=== PATIENT | male | born 2000 | race Caucasian/White ===

== ENCOUNTER 2020-11-18 07:50 | Emergency (ER) | payer MEDICAID ==
--- NOTE | 2020-11-18 13:52 | ER ---
REASON FOR EMERGENCY ROOM VISIT: Sore throat. 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 He has not had any fever or cough and denies any GI symptoms. He denies any shortness of breath. The patient has not been vaccinated for COVID at this time. He is accompanied by his girlfriend who has been feeling well. PAST MEDICAL HISTORY: Unremarkable. MEDICATIONS: None. ALLERGIES: TO PENICILLINS. REVIEW OF SYSTEMS: Pertinent positives and negatives as listed in the HPI. PHYSICAL EXAMINATION: VITAL SIGNS: He is afebrile. Blood pressure 146/97, respiratory rate is 18, O2 sats 98% on room air. HEENT: Head is normocephalic. He has no conjunctivitis. Oropharynx, he does have some pharyngeal erythema. NECK: Supple. There is no adenopathy. CHEST: Clear to auscultation with good air exchange bilaterally. No wheezes, rhonchi, or rales are noted. ABDOMEN: Soft, nontender. No hepatosplenomegaly. SKIN: No rashes. LABORATORY DATA: His strep screen was negative. We went ahead and obtained a COVID screen and that too was negative. IMPRESSION: Pharyngitis, most likely viral. PLAN: Very supportive measures were discussed with him. Certainly, if he should have any worsening of his symptoms or any questions or concerns, he should call or return for an another evaluation. He understands and agrees with this plan. All questions were answered. NELDA /[id number]
== END 2020-11-18 09:40 | disposition home or self-care (01) ==
LOC: LB.ED 07:50
DX: J02.9 Acute pharyngitis, unspecified (principal); Z88.0 Allergy status to penicillin; Z20.822 Contact with and (suspected) exposure to COVID-19
CPT/HCPCS: 87430; 99283; U0002

== ENCOUNTER 2020-11-18 20:59 | Emergency (ER) | payer MEDICAID ==
[2020-11-18] MEDS ORDERED: Azithromycin 250 MG Tab ONE (21:00)
[2020-11-18] MEDS ORDERED: traMADol 50 MG Tab PO ONE (21:52)
--- NOTE | 2020-11-19 02:01 | ER ---
REASON FOR EMERGENCY ROOM VISIT: Sore throat. HISTORY: This 20-year-old man was in earlier this morning with a sore throat of 3 or 4 days duration. At that time, he had some erythema of his posterior pharynx, but no exudates. He did not have any adenopathy and the rest of his physical findings were unremarkable. He had a symptoms of 3 or 4 days. The strep screen was negative and his COVID-19 rapid test was negative as well. He was discharged with instructions for supportive care and advised that this was likely a viral type of infection. Throughout the day, he began to have fever and chills with a temperature as high as 101 degrees and he developed some tender lymph nodes in his cervical area. He has not had any nausea or vomiting. He denies any cough or wheezing. He has not had any skin rashes. PAST MEDICAL HISTORY: Unremarkable. MEDICATIONS: None. ALLERGIES: TO PENICILLIN. PHYSICAL EXAMINATION: GENERAL: He is alert and in no acute distress. VITAL SIGNS: His temperature is 101 degrees. HEENT: Head is normocephalic. He has no conjunctivitis. TMs are normal. His oropharynx, he still has erythema and perhaps some slight tonsillar exudates are noted. There is no evidence of peritonsillar abscess. NECK: Supple, but he does have some tender anterior cervical nodes high up in the neck and beneath the angle of the mandible bilaterally. CHEST: Clear to auscultation. CARDIAC: Regular rate without murmur. SKIN: No rashes. ABDOMEN: Soft. No hepatosplenomegaly. LABORATORY DATA: Repeat strep screen this evening was in fact negative, but his monospot is positive. IMPRESSION: Infectious mono with pharyngitis. PLAN: I informed him of this and antibiotics would not be useful. Under these circumstances, we were going to give him a Z-Kulwant, but when the monospot returned, I advised him not to take antibiotics at this time. We will give him some tramadol for discomfort. We will give him 1 tramadol tonight to take before he goes home, so he can get some rest, but that ibuprofen and Tylenol would be the best thing. He needs to rest and he is told that this may take several days before symptoms will subside. The risk of splenic enlargement and injury to his spleen with vigorous exercise or accidents was explained to him and so that he should take necessary precautions. He understands, all questions were answered. He agrees with this. MYRON/ELIAS /[id number]
== END 2020-11-18 21:55 | disposition home or self-care (01) ==
LOC: LB.ED 20:59
DX: J02.9 Acute pharyngitis, unspecified (principal); B27.90 Infectious mononucleosis, unspecified without complication; Z88.0 Allergy status to penicillin
CPT/HCPCS: 36415; 86308; 87430; 99283; A9270

== ENCOUNTER 2020-11-20 14:34 | Observation (INO) | payer MEDICAID ==
[~2020-11-20 14:34] MED LIST: Iopamidol 612 MG/ML 100 ML Bottle IV ONE
[2020-11-20] MEDS ORDERED: Ketorolac 60 MG/2 ML SDV IVPUSH ONE (15:13)
[2020-11-20] MEDS ORDERED: Sodium Chloride 0.9% 1,000 ML IV SCH (15:25)
[2020-11-20] MEDS ORDERED: Sodium Chloride 0.9% 50 ML SDV FLUSH ONE (15:28)
[2020-11-20] MEDS ORDERED: Ketorolac 30 MG/ML SDV ONE (15:29)
[2020-11-20] MEDS ORDERED: Iopamidol 612 MG/ML 100 ML Bottle IV SCH (15:30)
[2020-11-20] MEDS ORDERED: Prochlorperazine 10 MG/2 ML SDV IVPUSH ONE (16:04)
[2020-11-20] MEDS ORDERED: HYDROmorphone 2 MG/ML SDV IVPUSH ONE (16:04)
[2020-11-20] MEDS ORDERED: methylPREDNISolone Sodium Succinate 125 MG/2 ML SDV IVPUSH ONE (16:32)
[2020-11-20] MEDS ORDERED: Lactated Ringers 2,000 ML IV SCH (17:00)
[2020-11-20] MEDS ORDERED: Sodium Chloride 0.9% 1,000 ML IV ONE (17:03)
[2020-11-20] MEDS ORDERED: Ketorolac 60 MG/2 ML SDV IM SCH ×2 (17:15→21:00)
[2020-11-20] MEDS ORDERED: methylPREDNISolone Sodium Succinate 125 MG/2 ML SDV IVPUSH SCH (17:15)
--- NOTE | 2020-11-20 18:31 | EDM.PDOC ---
ED HPI GENERAL MEDICAL PROBLEM - General Chief Complaint: General Stated Complaint: POSSIBLE MONO Time Seen by Provider: 11/20/20 14:45 Source of Information: Reports: Patient, Significant Other History Limitations: Reports: No Limitations - History of Present Illness INITIAL COMMENTS - FREE TEXT/NARRATIVE: pt arrives with significant other who assists with history due to pt difficulty speaking. pt with dx of mono on Nov with symptoms of sore throat, trouble sleeping, difficulty swallowing worsening over the last 24hrs. pt has an appetite but has been unable to eat or drink due to the painful swallowing. difficulty speaking as well, and pt states sleep is difficult due to needing to keep position of leading forward to breathe easily. sonorous respirations intermittently throughout the day. denies fever, chills, nausea, vomiting. last BM of 15 november. - Related Data Allergies Allergy/AdvReac Type Severity Reaction Status Date / Time Penicillins Allergy Bronchospas Verified 11/20/20 14:43 ms Home Meds: Home Meds NK [No Known Home Meds] 11/18/20 [History] Past Medical History - Past Health History Medical/Surgical History: Denies Medical/Surgical History - Past Surgical History Musculoskeletal Surgical History: Reports: Other (See Below) Other Musculoskeletal Surgeries/Procedures:: Broken left ankle, wrist and nose Social & Family History - Family History Family Medical History: No Pertinent Family History - Caffeine Use Caffeine Use: Reports: Soda - Recreational Drug Use Recreational Drug Use: No ED ROS GENERAL - Review of Systems Review Of Systems: Comprehensive ROS is negative, except as noted in HPI. ED EXAM, GENERAL - Physical Exam Exam: See Below Exam Limited By: No Limitations General Appearance: Alert, No Apparent Distress Eye Exam: Bilateral Eye: EOMI, PERRL Nose: Normal Inspection, Normal Mucosa Throat/Mouth: Normal Lips, Normal Teeth, Normal Gums, Dysphagia, Other (hot potato voice, tonsillar grading of 3+, no noted petechia or exudates. uvula midline.) Head: Atraumatic, Normocephalic Neck: Full Range of Motion, Lymphadenopathy (R), Lymphadenopathy (L) Respiratory/Chest: No Respiratory Distress, Lungs Clear, No Accessory Muscle Use, Chest Non-Tender Cardiovascular: Normal Peripheral Pulses, Regular Rate, Rhythm, No Murmur Neurological: Alert, Oriented, CN II-XII Intact, Normal Cognition, Normal Gait Psychiatric: Normal Affect, Normal Mood Skin Exam: Warm, Dry, Intact Lymphatic: Adenopathy (cervical, submandibular, auricle) Course - Vital Signs Last Recorded V/S: Last Vital Signs Temp 101.2 F H 11/20/20 16:57 Pulse 120 H 11/20/20 16:57 Resp 20 11/20/20 16:57 BP 145/92 H 11/20/20 16:57 Pulse Ox 98 11/20/20 16:57 - Orders/Labs/Meds Orders: Active Orders 24 hr Category Date Time Status Admission Diagnosis [ADT] Routine ADT 11/20/20 16:57 Active Patient Status [ADT] Routine ADT 11/20/20 16:57 Active Transfer Patient (Change bed) [ADT] Routine ADT 11/20/20 16:57 Active Ambulate [RC] PER UNIT ROUTINE Care 11/20/20 17:00 Active Oxygen Therapy [RC] PRN Care 11/20/20 16:57 Active Up ad Shreya [RC] ASDIRECTED Care 11/20/20 16:57 Active VTE/DVT Education [RC] Per Unit Routine Care 11/20/20 16:57 Active Vital Signs [RC] 00,04,08,12,16,20 Care 11/20/20 16:57 Active Clear Liquid Diet [DIET] Diet 11/21/20 Breakfast Ordered Soft Tissue Neck w Cont [CT] Stat Exams 11/20/20 15:22 Taken Iopamidol [Isovue-300 (61%)] Med 11/20/20 15:30 Active 100 ml IV . DIRECTED Ketorolac [Toradol] Med 11/20/20 17:15 Active 15 mg IM Q6H Lactated Ringers [Ringers, Lactated] 2,000 ml Med 11/20/20 17:00 Active IV ASDIRECTED Sodium Chloride 0.9% [Normal Saline] 1,000 ml Med 11/20/20 15:25 Active IV ASDIRECTED methylPREDNISolone Sod Succ [Solu-MEDROL] Med 11/20/20 17:15 Active 125 mg IVPUSH Q8H Resuscitation Status Routine Resus Stat 11/20/20 16:57 Ordered Medication Orders Sodium Chloride (Normal Saline) 1,000 mls @ 999 mls/hr IV ASDIRECTED JENNIFER Last Admin: 11/20/20 15:30 Dose: 999 mls/hr Documented by: PERRY Lactated Ringer's (Ringers, Lactated) 2,000 mls @ 75 mls/hr IV ASDIRECTED JENNIFER Iopamidol (Iopamidol 612 Mg/Ml 100 Ml Bottle) 100 ml IV . DIRECTED [facility] Last Admin: 11/20/20 15:35 Dose: 100 ml Documented by: TAMAR Ketorolac Tromethamine (Ketorolac 60 Mg/2 Ml Sdv) 15 mg IM Q6H JENNIFER Methylprednisolone Sodium Succinate (Methylprednisolone Sodium Succinate 125 Mg/2 Ml Sdv) 125 mg IVPUSH Q8H [facility] Labs: Laboratory Tests 11/20/20 11/20/20 Range/Units 15:13 15:15 WBC 22.3 H* (4.0-11.0) K/uL RBC 4.88 (4.50-6.50) M/uL Hgb 15.0 (13.0-18.0) g/dL Hct 43.1 (40.0-54.0) % MCV 88 (76-96) fL MCH 30.7 (27.0-32.0) pg MCHC 34.8 (31.0-35.0) g/dL RDW 12.7 (11.0-16.0) % Plt Count 365 (150-400) K/uL MPV 9.6 (6.0-10.0) fL Add Manual Diff Yes Neutrophils % (Manual) 84.0 H (45.0-70.0) % Lymphocytes % (Manual) 7.0 L (20.0-40.0) % Monocytes % (Manual) 9.0 (3.0-10.0) % Platelet Estimate Adequate Sodium 139 (136-145) mmol/L Potassium 4.1 (3.5-5.1) mmol/L Chloride 100 (98-107) mmol/L Carbon Dioxide 29.2 (21.0-32.0) mmol/L Anion Gap 13.9 (5.0-15.0) mmol/L BUN 16 (8-26) mg/dL Creatinine 0.99 (0.70-1.30) mg/dL Est Cr Clr Drug Dosing 112.63 mL/min Estimated GFR (MDRD) > 60 (>60) MLS/MIN BUN/Creatinine Ratio 16.2 (6-25) Glucose 121 H (74-100) mg/dL Calcium 9.8 (8.5-10.1) mg/dL Total Bilirubin 0.9 (0.0-1.0) mg/dL AST 8 L (15-37) U/L ALT 15 (12-78) U/L Alkaline Phosphatase 80 (46-116) U/L Total Protein 9.1 H (6.4-8.2) g/dL Albumin 3.6 (3.4-5.0) g/dL Globulin 5.5 H (2.2-4.2) g/dL Albumin/Globulin Ratio 0.7 L (0.8-2.0) Meds: Medications Generic Name Dose Route Start Last Admin Trade Name Freq PRN Reason Stop Dose Admin Sodium Chloride 1,000 mls @ 999 mls/hr 11/20/20 15:25 11/20/20 15:30 Normal Saline IV 999 mls/hr ASDIRECTED JENNIFER Administration Lactated Ringer's 2,000 mls @ 75 mls/hr 11/20/20 17:00 Ringers, Lactated IV ASDIRECTED JENNIFER Iopamidol 100 ml 11/20/20 15:30 11/20/20 15:35 Iopamidol 612 Mg/Ml 100 Ml Bottle IV 100 ml . DIRECTED JENNIFER Administration Ketorolac Tromethamine 15 mg 11/20/20 17:15 Ketorolac 60 Mg/2 Ml Sdv IM Q6H JENNIFER Methylprednisolone Sodium Succinate 125 mg 11/20/20 17:15 Methylprednisolone Sodium Succinate 125 Mg/2 Ml Sdv IVPUSH Q8H JENNIFER Discontinued Medications Generic Name Dose Route Start Last Admin Trade Name Freq PRN Reason Stop Dose Admin Sodium Chloride 1,000 mls @ 999 mls/hr 11/20/20 17:03 Normal Saline IV 11/20/20 18:03 .BOLUS ONE Ketorolac Tromethamine 15 mg 11/20/20 15:13 11/20/20 15:19 Ketorolac 60 Mg/2 Ml Sdv IVPUSH 11/20/20 15:14 15 mg ONETIME ONE Administration Ketorolac Tromethamine Confirm 11/20/20 15:29 11/20/20 15:30 Ketorolac 30 Mg/Ml Sdv Administered 11/20/20 15:30 Not Given Dose 30 mg .ROUTE .STK-MED ONE Methylprednisolone Sodium Succinate 125 mg 11/20/20 16:32 11/20/20 16:39 Methylprednisolone Sodium Succinate 125 Mg/2 Ml Sdv IVPUSH 11/20/20 16:33 125 mg ONETIME ONE Administration Sodium Chloride 50 ml 11/20/20 15:28 11/20/20 15:35 Sodium Chloride 0.9% 50 Ml Sdv FLUSH 11/20/20 15:29 50 ml ONETIME ONE Administration Departure - Departure Time of Disposition: 17:45 Disposition: Admitted As Inpatient 64 Condition: Fair Clinical Impression: Mononucleosis syndrome - Discharge Information *PRESCRIPTION DRUG MONITORING PROGRAM REVIEWED*: Not Applicable *COPY OF PRESCRIPTION DRUG MONITORING REPORT IN PATIENT SUSAN: Not Applicable Sepsis Event Note (ED) - Evaluation Sepsis Screening Result: Possible Sepsis Risk - Focused Exam Vital Signs: Vital Signs Temp Temp Pulse Resp BP Pulse Ox 11/20/20 16:57 101.2 F H 120 H 20 145/92 H 98 11/20/20 16:34 100.3 F 120 H 16 146/92 H 99 11/20/20 14:48 124 H 11/20/20 14:44 99 F 116 H 20 136/91 H 99 - Problem List & Annotations (1) Mononucleosis syndrome SNOMED Code(s): 738282260 Code(s): B27.90 - INFECTIOUS MONONUCLEOSIS, UNSPECIFIED WITHOUT COMPLICATION Status: Acute Current Visit: Yes - Problem List Review Problem List Initiated/Reviewed/Updated: Yes - My Orders Last 24 Hours: My Active Orders 11/20/20 15:22 Soft Tissue Neck w Cont [CT] Stat 11/20/20 15:25 Sodium Chloride 0.9% [Normal Saline] 1,000 ml IV ASDIRECTED 11/20/20 16:57 Admission Diagnosis [ADT] Routine Patient Status [ADT] Routine Transfer Patient (Change bed) [ADT] Routine Oxygen Therapy [RC] PRN Up ad Shreya [RC] ASDIRECTED VTE/DVT Education [RC] Per Unit Routine Vital Signs [RC] 00,04,08,12,16,20 Resuscitation Status Routine 11/20/20 17:00 Ambulate [RC] PER UNIT ROUTINE Lactated Ringers [Ringers, Lactated] 2,000 ml IV ASDIRECTED 11/20/20 17:15 Ketorolac [Toradol] 15 mg IM Q6H methylPREDNISolone Sod Succ [Solu-MEDROL] 125 mg IVPUSH Q8H 11/21/20 Breakfast Clear Liquid Diet [DIET] - Assessment/Plan Last 24 Hours: My Active Orders 11/20/20 15:22 Soft Tissue Neck w Cont [CT] Stat 11/20/20 15:25 Sodium Chloride 0.9% [Normal Saline] 1,000 ml IV ASDIRECTED 11/20/20 16:57 Admission Diagnosis [ADT] Routine Patient Status [ADT] Routine Transfer Patient (Change bed) [ADT] Routine Oxygen Therapy [RC] PRN Up ad Shreya [RC] ASDIRECTED VTE/DVT Education [RC] Per Unit Routine Vital Signs [RC] 00,04,08,12,16,20 Resuscitation Status Routine 11/20/20 17:00 Ambulate [RC] PER UNIT ROUTINE Lactated Ringers [Ringers, Lactated] 2,000 ml IV ASDIRECTED 11/20/20 17:15 Ketorolac [Toradol] 15 mg IM Q6H methylPREDNISolone Sod Succ [Solu-MEDROL] 125 mg IVPUSH Q8H 11/21/20 Breakfast Clear Liquid Diet [DIET] Assessment:: mononucleosis syndrome plan: IV fluids, steroids until pt can take medication by mouth. discussed admission under observation with ehospitalist Dr. Sexton for symptomatic treatment and close monitoring.
[2020-11-20] MEDS ORDERED: fentaNYL 100 MCG/2 ML SDV IVPUSH ONE (19:11)
[2020-11-20] MEDS: Lactated Ringers 1,000 ML IV SCH (19:40)
[2020-11-20] MEDS ORDERED: Famotidine 20 MG/2 ML SDV IVPUSH SCH (20:00)
--- NOTE | 2020-11-20 20:10 | PCM.SN.2 ---
- Free Text/Narrative Note: [facility] HOSPITALIST CONSULTATION NOTE: The [facility] hospitalist was contacted by the local/ER provider with a request for consultation for admission support and cross coverage services for this patient. The ER provider requesting the consultation is Rojelio Waite NP. Chief Complaint: Sore throat. Reason for admission: severe pharyngitis; odynophagia; mononucleosis. HPI or ER course: The patient is a 20-year-old man, normally in good health, who has been ill for the last 5 days with sore throat, feverishness, and malaise. He was seen in the ER on 11/18/2020 and diagnosed with mononucleosis. He tested negative for Covid19 virus, influenza A and B, and strep pharyngitis. He returns to the ER today with worsening sore throat and difficulty swallowing. He continues to have feverishness and malaise. He has had no coughing. He has had no vomiting or diarrhea. He claims no abdominal pain. He was feverish with a temperature of 101.2 on presentation. His heart rate was 120. However, his respiratory rate, BP, and SPO2 were normal. His evaluation in the ER identified severe pharyngitis without obvious obstruction. He is being admitted for supportive care and close monitoring because of his complaints of swallowing difficulty and positional dyspnea. A CT scan of the neck was performed and the results are pending. Refer to the ER note for more detail on the history of present illness. Home Medications: The home medication list was reviewed in the EMR. Pertinent Medical History: Refer to EMR problem list and ER encounter note. Pertinent Social History: Reviewed in ER encounter note. Refer to the admission H&P. EXAM: Performed via an interactive video with the assistance of the bedside nurse caring for this patient. The RN is Anny. VS: WNL; T1 1.2. P1 20. RR 20. BP 145/92. SPO2 98% on room air. GENERAL APPEARANCE: The patient is awake, alert and appears nondistressed. No coughing, wheezing, or stridor seen. No drooling is seen. The patient does not speak because of pain. HEENT: Facial features are normal and symmetric. The mucous membranes are normal-appearing. The oropharynx reveals 1/4 edema in the posterior pharynx. The oropharynx appears patent. No significant tonsillar enlargement is appreciated. No exudates are seen. NECK: Supple. There is no JVD. CHEST: Normal chest wall movement with respirations. LUNGS: CTA, bilaterally HEART: Regular rhythm and rate. No murmurs, gallops, or rubs are heard. ABDOMEN: Soft. Nontender. EXTREMITIES: WNL. Pulses present. SKIN: No rashes or primary skin lesions seen. NEUROLOGICAL: Cranial nerve function appears normal. No lateralized sensorimotor deficits detected. LAB DATA: Reviewed in the EMR. [place] screen positive. Influenza A/B screen negative. Covid19 viral screen negative. Strep screen negative. EKG FINDINGS: N/A. RADIOLOGY REPORTS: CT neck report pending. ASSESSMENT: 1. Severe pharyngitis. 2. Odynophagia. 3. No evidence of severe respiratory obstruction. 4. Mononucleosis. PLANS: [facility]. [facility] this [facility]. 2. Agree with admission for monitoring and supportive care, given the patient's severe symptoms and uncertain risks for airway obstruction. 3. Agree with analgesics for pain control. 4. Agree with IV fluid therapy to maintain hydration while the patient is bothered by dysphagia 5. See no current indications for antibiotic or antiviral agents. RECOMMENDATIONS: 1. DVT prevention steps. 2. Appropriate respiratory and droplet contact precautions. 3. Antipyretics for fever control. I have reviewed the case in consultation. Information has been gathered from conversations with the local provider, a review of the patient's chart, and by a patient evaluation. Based on the current information and the patients current medical condition, I certify the patient meets criteria for: [ ] Acute inpatient status with the expectation of a patient stay of more than 2 midnights, but less than 96 hrs. [ ] Swing bed. [XXX] Observation status with an expected stay of less than 2 midnights. [facility] This service is available for further assistance as requested by your care team by calling [phone].
[2020-11-20] MEDS: Ketorolac 60 MG/2 ML SDV IVPUSH SCH (21:15)
[2020-11-20] MEDS: Pantoprazole 40 MG Vial IVPUSH SCH (23:09)
[2020-11-21] MEDS: methylPREDNISolone Sodium Succinate 125 MG/2 ML SDV IVPUSH SCH ×2 (00:40→07:58)
[2020-11-21] MEDS: Ketorolac 60 MG/2 ML SDV IVPUSH SCH ×3 (03:05→15:03)
[2020-11-21] MEDS: Pantoprazole 40 MG Vial IVPUSH SCH (07:59)
[2020-11-21] MEDS: Lactated Ringers 1,000 ML IV SCH (08:34)
--- NOTE | 2020-11-21 09:34 | CT ---
DATE OF SERVICE: 11/20/2020 CLINICAL DATA: Postured breathing, difficulty breathing, [place] positive Enhanced neck CT: Multi slice acquisition through the neck with IV contrast was performed. No priors. The parotid glands are symmetric and appear normal. The submandibular glands are symmetric and appear normal. The thyroid gland appears unremarkable. There is marked soft tissue swelling of the palatine and lingual tonsils bilaterally. There are low density areas within both palatine tonsils suspicious for abscesses. The right side measures 3.6 cm axially. The left side measures 2.6 cm axially. There is marked mass effect and narrowing of the airway. The larynx and trachea are unremarkable. The epiglottis is not enlarged. No other significant findings. Impression: Abnormal tonsils with findings suspicious for tonsillar abscesses bilaterally. See above. The patient's physician was notified of the findings by telephone and by virtual radiologic preliminary radiology report. Thank you for allowing us to participate in the care of your patient. LUPE
[2020-11-21] MEDS ORDERED: GI Cocktail Oral Solution 30 ML PO ONE (11:55)
[2020-11-21] MEDS ORDERED: Lidocaine 2% Viscous Solution 100 ML Bottle PO ONE (12:15)
--- NOTE | 2020-11-21 15:30 | PCM.PN ---
- General Info Date of Service: 11/21/20 Admission Dx/Problem (Free Text): pt with mono significant symptoms of dysphagia, dysphonia, dyspnea needing posturing admitted for IV fluids and corticosteroids. Subjective Update: Patient states he improved swallowing status, as well as speech and breathing and that he slept more last night than previous nights. Functional Status: Reports: Pain Controlled, Tolerating Diet, Ambulating, Urinating - Review of Systems General: Reports: Fatigue HEENT: Reports: Sore Throat, Other (dysphagia, dysphonia) Pulmonary: Reports: No Symptoms Cardiovascular: Reports: No Symptoms Musculoskeletal: Reports: No Symptoms Skin: Reports: No Symptoms Neurological: Reports: No Symptoms - Patient Data Vitals - Most Recent: Last Vital Signs Temp 98.5 F 11/21/20 11:43 Pulse 81 11/21/20 11:43 Resp 18 11/21/20 11:43 BP 124/78 11/21/20 08:00 Pulse Ox 99 11/21/20 11:43 Weight - Most Recent: 138 lb 12.8 oz I&O - Last 24 Hours: Intake & Output 11/21/20 11/21/20 11/21/20 06:59 14:59 22:59 Intake Total 1680 Balance 1680 Lab Results Last 24 Hours: Laboratory Results - last 24 hr 11/20/20 11/20/20 Range/Units 15:13 15:15 WBC 22.3 H* (4.0-11.0) K/uL RBC 4.88 (4.50-6.50) M/uL Hgb 15.0 (13.0-18.0) g/dL Hct 43.1 (40.0-54.0) % MCV 88 (76-96) fL MCH 30.7 (27.0-32.0) pg MCHC 34.8 (31.0-35.0) g/dL RDW 12.7 (11.0-16.0) % Plt Count 365 (150-400) K/uL MPV 9.6 (6.0-10.0) fL Add Manual Diff Yes Neutrophils % (Manual) 84.0 H (45.0-70.0) % Lymphocytes % (Manual) 7.0 L (20.0-40.0) % Monocytes % (Manual) 9.0 (3.0-10.0) % Platelet Estimate Adequate Sodium 139 (136-145) mmol/L Potassium 4.1 (3.5-5.1) mmol/L Chloride 100 (98-107) mmol/L Carbon Dioxide 29.2 (21.0-32.0) mmol/L Anion Gap 13.9 (5.0-15.0) mmol/L BUN 16 (8-26) mg/dL Creatinine 0.99 (0.70-1.30) mg/dL Est Cr Clr Drug Dosing 112.63 mL/min Estimated GFR (MDRD) > 60 (>60) MLS/MIN BUN/Creatinine Ratio 16.2 (6-25) Glucose 121 H (74-100) mg/dL Calcium 9.8 (8.5-10.1) mg/dL Total Bilirubin 0.9 (0.0-1.0) mg/dL AST 8 L (15-37) U/L ALT 15 (12-78) U/L Alkaline Phosphatase 80 (46-116) U/L Total Protein 9.1 H (6.4-8.2) g/dL Albumin 3.6 (3.4-5.0) g/dL Globulin 5.5 H (2.2-4.2) g/dL Albumin/Globulin Ratio 0.7 L (0.8-2.0) Jaskaran Results Last 24 Hours: Microbiology 11/20/20 15:45 Influenza Type A Antigen Screen - Final Nasal, Unspecified NEGATIVE INFLUENZA A VIRUS AG REFERENCE RANGE: NEGATIVE Influenza Type B Antigen Screen - Final NEGATIVE INFLUENZA B VIRUS AG REFERENCE RANGE: NEGATIVE Med Orders - Current: Current Medications Lactated Ringer's (Ringers, Lactated) 1,000 mls @ 75 mls/hr IV ASDIRECTED [facility] Last Admin: 11/21/20 08:34 Dose: 75 mls/hr Documented by: Ketorolac Tromethamine (Ketorolac 60 Mg/2 Ml Sdv) 15 mg IVPUSH Q6H [facility] Last Admin: 11/21/20 15:03 Dose: 15 mg Documented by: Methylprednisolone Sodium Succinate (Methylprednisolone Sodium Succinate 125 Mg/2 Ml Sdv) 125 mg IVPUSH Q8H [facility] Last Admin: 11/21/20 07:58 Dose: 125 mg Documented by: Pantoprazole Sodium (Pantoprazole 40 Mg Vial) 40 mg IVPUSH DAILY [facility] Last Admin: 11/21/20 07:59 Dose: 40 mg Documented by: Discontinued Medications Al Hydroxide/Mg Hydroxide (Gi Cocktail Oral Solution 30 Ml) 30 ml PO ONETIME ONE Stop: 11/21/20 11:56 Last Admin: 11/21/20 13:03 Dose: Not Given Documented by: Famotidine (Famotidine 20 Mg/2 Ml Sdv) 20 mg IVPUSH DAILY [facility] Last Admin: 11/20/20 22:17 Dose: Not Given Documented by: Fentanyl (Fentanyl 100 Mcg/2 Ml Sdv) 50 mcg IVPUSH ONETIME ONE Stop: 11/20/20 19:12 Last Admin: 11/20/20 19:56 Dose: 50 mcg Documented by: Sodium Chloride (Normal Saline) 1,000 mls @ 999 mls/hr IV ASDIRECTED [facility] Last Admin: 11/20/20 15:30 Dose: 999 mls/hr Documented by: Lactated Ringer's (Ringers, Lactated) 2,000 mls @ 75 mls/hr IV ASDIRECTED [facility] Sodium Chloride (Normal Saline) 1,000 mls @ 999 mls/hr IV .BOLUS ONE Stop: 11/20/20 18:03 Last Admin: 11/20/20 19:55 Dose: Not Given Documented by: Iopamidol (Iopamidol 612 Mg/Ml 100 Ml Bottle) 100 ml IV . DIRECTED [facility] Last Admin: 11/20/20 15:35 Dose: 100 ml Documented by: Iopamidol (Iopamidol 612 Mg/Ml 100 Ml Bottle) 100 ml IV ONETIME ONE Stop: 11/20/20 04:01 Last Admin: 11/21/20 03:58 Dose: Not Given Documented by: Ketorolac Tromethamine (Ketorolac 60 Mg/2 Ml Sdv) 15 mg IVPUSH ONETIME ONE Stop: 11/20/20 15:14 Last Admin: 11/20/20 15:19 Dose: 15 mg Documented by: Ketorolac Tromethamine (Ketorolac 30 Mg/Ml Sdv) Confirm Administered Dose 30 mg .ROUTE .STK-MED ONE Stop: 11/20/20 15:30 Last Admin: 11/20/20 15:30 Dose: Not Given Documented by: Ketorolac Tromethamine (Ketorolac 60 Mg/2 Ml Sdv) 15 mg IM Q6H [facility] Last Admin: 11/20/20 22:21 Dose: Not Given Documented by: Ketorolac Tromethamine (Ketorolac 60 Mg/2 Ml Sdv) 15 mg IM Q6H [facility] Lidocaine HCl (Lidocaine 2% Viscous Solution 100 Ml Bottle) 30 ml PO ONETIME ONE Stop: 11/21/20 12:16 Last Admin: 11/21/20 13:10 Dose: 30 ml Documented by: Methylprednisolone Sodium Succinate (Methylprednisolone Sodium Succinate 125 Mg/2 Ml Sdv) 125 mg IVPUSH ONETIME ONE Stop: 11/20/20 16:33 Last Admin: 11/20/20 16:39 Dose: 125 mg Documented by: Methylprednisolone Sodium Succinate (Methylprednisolone Sodium Succinate 125 Mg/2 Ml Sdv) 125 mg IVPUSH Q8H [facility] Last Admin: 11/20/20 21:08 Dose: Not Given Documented by: Sodium Chloride (Sodium Chloride 0.9% 50 Ml Sdv) 50 ml FLUSH ONETIME ONE Stop: 11/20/20 15:29 Last Admin: 11/20/20 15:35 Dose: 50 ml Documented by: - Exam General: Alert, Oriented, Cooperative HEENT: Pupils Equal, Pupils Reactive, EOMI, Mucous Membr. Moist/[place], Other (pharyngeal edema without petechia, halitosis) Neck: Lymphadenopathy Lungs: Clear to Auscultation, Normal Respiratory Effort Cardiovascular: Regular Rate, Regular Rhythm, No Murmurs Skin: Warm, Dry, Intact Neurological: No New Focal Deficit Psy/Mental Status: Alert, Normal Affect, Normal Mood - Patient Data Lab Results Last 24 hrs: Laboratory Results - last 24 hr 11/20/20 11/20/20 Range/Units 15:13 15:15 WBC 22.3 H* (4.0-11.0) K/uL RBC 4.88 (4.50-6.50) M/uL Hgb 15.0 (13.0-18.0) g/dL Hct 43.1 (40.0-54.0) % MCV 88 (76-96) fL MCH 30.7 (27.0-32.0) pg MCHC 34.8 (31.0-35.0) g/dL RDW 12.7 (11.0-16.0) % Plt Count 365 (150-400) K/uL MPV 9.6 (6.0-10.0) fL Add Manual Diff Yes Neutrophils % (Manual) 84.0 H (45.0-70.0) % Lymphocytes % (Manual) 7.0 L (20.0-40.0) % Monocytes % (Manual) 9.0 (3.0-10.0) % Platelet Estimate Adequate Sodium 139 (136-145) mmol/L Potassium 4.1 (3.5-5.1) mmol/L Chloride 100 (98-107) mmol/L Carbon Dioxide 29.2 (21.0-32.0) mmol/L Anion Gap 13.9 (5.0-15.0) mmol/L BUN 16 (8-26) mg/dL Creatinine 0.99 (0.70-1.30) mg/dL Est Cr Clr Drug Dosing 112.63 mL/min Estimated GFR (MDRD) > 60 (>60) MLS/MIN BUN/Creatinine Ratio 16.2 (6-25) Glucose 121 H (74-100) mg/dL Calcium 9.8 (8.5-10.1) mg/dL Total Bilirubin 0.9 (0.0-1.0) mg/dL AST 8 L (15-37) U/L ALT 15 (12-78) U/L Alkaline Phosphatase 80 (46-116) U/L Total Protein 9.1 H (6.4-8.2) g/dL Albumin 3.6 (3.4-5.0) g/dL Globulin 5.5 H (2.2-4.2) g/dL Albumin/Globulin Ratio 0.7 L (0.8-2.0) Result Diagrams: 11/20/20 15:15 11/20/20 15:13 Jaskaran Results Last 24 hrs: Microbiology 11/20/20 15:45 Influenza Type A Antigen Screen - Final Nasal, Unspecified NEGATIVE INFLUENZA A VIRUS AG REFERENCE RANGE: NEGATIVE Influenza Type B Antigen Screen - Final NEGATIVE INFLUENZA B VIRUS AG REFERENCE RANGE: NEGATIVE Sepsis Event Note - Evaluation Sepsis Screening Result: No Definite Risk - Focused Exam Vital Signs: Vital Signs Temp Temp Pulse Resp BP Pulse Ox 11/21/20 11:43 98.5 F 81 18 99 11/21/20 08:00 98.2 F 98.5 F 87 20 124/78 99 11/21/20 04:00 96.8 F L 66 14 121/94 H 96 - Problem List & Annotations (1) Mononucleosis syndrome SNOMED Code(s): 897906516 Code(s): B27.90 - INFECTIOUS MONONUCLEOSIS, UNSPECIFIED WITHOUT COMPLICATION Status: Acute Current Visit: Yes - Problem List Review Problem List Initiated/Reviewed/Updated: Yes - My Orders Last 24 Hours: My Active Orders 11/20/20 16:57 Admission Diagnosis [ADT] Routine Patient Status [ADT] Routine Transfer Patient (Change bed) [ADT] Routine Oxygen Therapy [RC] PRN Up ad Shreya [RC] ASDIRECTED Resuscitation Status Routine 11/20/20 17:00 Ambulate [RC] PER UNIT ROUTINE 11/20/20 18:38 Lactated Ringers [Ringers, Lactated] 1,000 ml IV ASDIRECTED 11/20/20 21:00 Ketorolac [Toradol] 15 mg IVPUSH Q6H 11/20/20 22:30 Pantoprazole [ProTONIX IV] 40 mg IVPUSH DAILY 11/21/20 00:00 methylPREDNISolone Sod Succ [Solu-MEDROL] 125 mg IVPUSH Q8H 11/21/20 Breakfast Clear Liquid Diet [DIET] 11/21/20 11:59 Vital Signs [RC] Q8HR - Assessment Assessment:: assessment: mono plan: swallowing and speaking difficulty has improved markedly. pt posturing for breathing has lessened to a more natural posture. abrupt significant amount of pus and saliva drained from pt tonsilar area, fortuitously providing pt with clear and open airway and significantly improved speech. pt wishes to stay one more night and d/c in AM. this will be obliged. change pt diet to solids as tolerated, start PO nsaids and corticosteroids tonight. stop IV fluids and start fluids by mouth.
[2020-11-21] MEDS ORDERED: Acetaminophen/HYDROcodone 325-5 MG Tab PO PRN (15:41)
[2020-11-21] MEDS: Ibuprofen 600 MG Tab PO SCH (19:44)
[2020-11-21] MEDS: predniSONE 20 MG Tab PO ONE ×2 (19:44→23:21)
[2020-11-21] MEDS ORDERED: Sodium Chloride 0.9% 10 ML Syringe FLUSH PRN (19:47)
[2020-11-22] MEDS: Ibuprofen 600 MG Tab PO SCH ×2 (02:09→08:01)
[2020-11-22] MEDS: Pantoprazole 40 MG Vial IVPUSH SCH (08:51)
--- NOTE | 2020-11-22 11:08 | PCM.DCSUM1 ---
Discharge Summary - Hospital Course Free Text/Narrative:: pt admitted with [place] with s/s of significant dysphagia, dysphonia, dyspnea treated with IV fluids due to poor intake, IV NSAIDS, IV corticosteroids. admit day 1 pt had eruption of tonsilar abscess which reduced swelling greatly and allowed pt to start PO fluids, food, meds. admit day 2 pt improvements in wellness and has tolerated PO intake and meds well. Diagnosis: Stroke: No - Discharge Data Discharge Date: 11/22/20 Discharge Disposition: Home, Self-Care 01 Condition: Good - Referral to Home Health Primary Care Physician: PCP None - Discharge Diagnosis/Problem(s) (1) Mononucleosis syndrome SNOMED Code(s): 224204007 ICD Code: B27.90 - INFECTIOUS MONONUCLEOSIS, UNSPECIFIED WITHOUT COMPLICATION Status: Acute Current Visit: Yes - Patient Summary/Data Recommended Follow-up Testing/Procedures: establish care with PCP in 2-3 weeks sooner if symptoms of throat swelling occur again return to ER for inability to swallow, breathe, talk as corticosteroids may be needed at that time, or other treatments and testing. - Patient Instructions Activity: As Tolerated Driving: May Drive Today Showering/Bathing: May Shower Other/Special Instructions: tylenol, ibuprofen as discussed. return to clinic or ER if abdominal pain. abstain from alcohol. rest when able to prevent future episodes/recurrence of mono - Discharge Plan *PRESCRIPTION DRUG MONITORING PROGRAM REVIEWED*: Not Applicable *COPY OF PRESCRIPTION DRUG MONITORING REPORT IN PATIENT SUSAN: Not Applicable Home Medications: Home Meds NK [No Known Home Meds] 11/18/20 [History] Oxygen Therapy Mode: Room Air Patient Handouts: Infectious Mononucleosis Forms: Return to Work/Inpatient [facility] Referrals: PCP,None [Primary Care Provider] - - Discharge Summary/Plan Comment DC Time >30 min.: Yes Discharge Summary/Plan Comment: tylenol 1000mg and ibuprofen 600mg four times a day as needed for pain. return to clinic or ER if abdominal pain, especially after injury abstain from alcohol rest when able to prevent future episodes/recurrence of mono - Patient Data Vitals - Most Recent: Last Vital Signs Temp 98.4 F 11/22/20 08:01 Pulse 73 11/21/20 20:00 Resp 17 11/22/20 04:00 BP 114/69 11/21/20 20:00 Pulse Ox 99 11/21/20 16:00 Weight - Most Recent: 138 lb 12.8 oz I&O - Last 24 hours: Intake & Output 11/21/20 11/22/20 11/22/20 22:59 06:59 14:59 Intake Total 755 Balance 755 Med Orders - Current: Current Medications Hydrocodone Bitart/Acetaminophen (Acetaminophen/Hydrocodone 325-5 Mg Tab) 1 tab PO Q6H PRN PRN Reason: Pain Last Admin: 11/21/20 15:57 Dose: 1 tab Documented by: Ibuprofen (Ibuprofen 600 Mg Tab) 600 mg PO Q6H [facility] Last Admin: 11/22/20 08:01 Dose: 600 mg Documented by: Pantoprazole Sodium (Pantoprazole 40 Mg Vial) 40 mg IVPUSH DAILY [facility] Last Admin: 11/22/20 08:51 Dose: 40 mg Documented by: Sodium Chloride (Sodium Chloride 0.9% 10 Ml Syringe) 10 ml FLUSH BID PRN PRN Reason: Keep Vein Open Last Admin: 11/21/20 19:52 Dose: 10 ml Documented by: Discontinued Medications Al Hydroxide/Mg Hydroxide (Gi Cocktail Oral Solution 30 Ml) 30 ml PO ONETIME ONE Stop: 11/21/20 11:56 Last Admin: 11/21/20 13:03 Dose: Not Given Documented by: Famotidine (Famotidine 20 Mg/2 Ml Sdv) 20 mg IVPUSH DAILY [facility] Last Admin: 11/20/20 22:17 Dose: Not Given Documented by: Fentanyl (Fentanyl 100 Mcg/2 Ml Sdv) 50 mcg IVPUSH ONETIME ONE Stop: 11/20/20 19:12 Last Admin: 11/20/20 19:56 Dose: 50 mcg Documented by: Sodium Chloride (Normal Saline) 1,000 mls @ 999 mls/hr IV ASDIRECTED [facility] Last Admin: 11/20/20 15:30 Dose: 999 mls/hr Documented by: Lactated Ringer's (Ringers, Lactated) 2,000 mls @ 75 mls/hr IV ASDIRECTED [facility] Sodium Chloride (Normal Saline) 1,000 mls @ 999 mls/hr IV .BOLUS ONE Stop: 11/20/20 18:03 Last Admin: 11/20/20 19:55 Dose: Not Given Documented by: Lactated Ringer's (Ringers, Lactated) 1,000 mls @ 75 mls/hr IV ASDIRECTED [facility] Last Admin: 11/21/20 08:34 Dose: 75 mls/hr Documented by: Iopamidol (Iopamidol 612 Mg/Ml 100 Ml Bottle) 100 ml IV . DIRECTED [facility] Last Admin: 11/20/20 15:35 Dose: 100 ml Documented by: Iopamidol (Iopamidol 612 Mg/Ml 100 Ml Bottle) 100 ml IV ONETIME ONE Stop: 11/20/20 04:01 Last Admin: 11/21/20 03:58 Dose: Not Given Documented by: Ketorolac Tromethamine (Ketorolac 60 Mg/2 Ml Sdv) 15 mg IVPUSH ONETIME ONE Stop: 11/20/20 15:14 Last Admin: 11/20/20 15:19 Dose: 15 mg Documented by: Ketorolac Tromethamine (Ketorolac 30 Mg/Ml Sdv) Confirm Administered Dose 30 mg .ROUTE .STK-MED ONE Stop: 11/20/20 15:30 Last Admin: 11/20/20 15:30 Dose: Not Given Documented by: Ketorolac Tromethamine (Ketorolac 60 Mg/2 Ml Sdv) 15 mg IM Q6H [facility] Last Admin: 11/20/20 22:21 Dose: Not Given Documented by: Ketorolac Tromethamine (Ketorolac 60 Mg/2 Ml Sdv) 15 mg IM Q6H [facility] Ketorolac Tromethamine (Ketorolac 60 Mg/2 Ml Sdv) 15 mg IVPUSH Q6H [facility] Last Admin: 11/21/20 15:03 Dose: 15 mg Documented by: Lidocaine HCl (Lidocaine 2% Viscous Solution 100 Ml Bottle) 30 ml PO ONETIME ONE Stop: 11/21/20 12:16 Last Admin: 11/21/20 13:10 Dose: 30 ml Documented by: Methylprednisolone Sodium Succinate (Methylprednisolone Sodium Succinate 125 Mg/2 Ml Sdv) 125 mg IVPUSH ONETIME ONE Stop: 11/20/20 16:33 Last Admin: 11/20/20 16:39 Dose: 125 mg Documented by: Methylprednisolone Sodium Succinate (Methylprednisolone Sodium Succinate 125 Mg/2 Ml Sdv) 125 mg IVPUSH Q8H [facility] Last Admin: 11/20/20 21:08 Dose: Not Given Documented by: Methylprednisolone Sodium Succinate (Methylprednisolone Sodium Succinate 125 Mg/2 Ml Sdv) 125 mg IVPUSH Q8H [facility] Last Admin: 11/21/20 07:58 Dose: 125 mg Documented by: Prednisone (Prednisone 20 Mg Tab) 20 mg PO ONETIME ONE Stop: 11/21/20 21:01 Last Admin: 11/21/20 23:21 Dose: Not Given Documented by: Sodium Chloride (Sodium Chloride 0.9% 50 Ml Sdv) 50 ml FLUSH ONETIME ONE Stop: 11/20/20 15:29 Last Admin: 11/20/20 15:35 Dose: 50 ml Documented by:
== END 2020-11-22 11:35 | disposition home or self-care (01) ==
LOC: LB.ED 14:34 → LB.MS 17:44
PROVIDERS: ADMIT Registered Nurse; ATTEND Registered Nurse
DX: B27.90 Infectious mononucleosis, unspecified without complication (principal); J02.9 Acute pharyngitis, unspecified; R13.10 Dysphagia, unspecified; G47.9 Sleep disorder, unspecified
CPT/HCPCS: 36415; 70491; 80053; 85025; 87804; 87804-59; 96361; 96374; 96375; 96376; 99285-25; A9270-GY; C9113; G0378; J1885; J2930; J3010; J7030; J7120; J7512; Q9967